=== PATIENT | male | born 1990 | race Hispanic/Latino ===

== ENCOUNTER 2017-07-29 05:58 | Emergency (ER) | payer OTHER ==
[2017-07-29 06:40] LABS: Bicarbonate 30 mEq/L (21-31); Glucose Level 84 mg/dL (65-120); Potassium 3.9 mEq/L (3.6-5.0); Sodium Level 141 mEq/L (135-145)
[2017-07-29 06:41] LABS: Absolute Lymphocytes (CBC) 1.7 K/uL (0.7-4.9); Absolute Monocytes 0.6 K/uL (0.1-1.3); Absolute Neutrophil 8.9 K/uL (1.8-8.0); BUN Blood Urea Nitrogen 10 mg/dL (6-20); Basophils % 0.9 % (0-1.3); Eosinophils % 0.2 % (0-4.4); Glomerular Filtration Rate > 60 mL/min (>60); Glomerular Filtration Rate > 90 mL/min (=/>90); Hematocrit 49.8 % (39.6-49.0); Lymphocytes % 14.7 % (15.3-44.8); MCH 31.4 pg (27.0-35.0); MCV 93.2 fL (80-100); MPV 8.5 fL (7.6-11.3); Monocytes % 5.3 % (3.3-12.3); RBC Red Blood Cell Count 5.34 M/uL (4.33-5.43)
[2017-07-29] MEDS ORDERED: NA CHLORIDE 0.9% 1,000 ML ONE (07:08)
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
[2017-07-29 08:14] LABS: Barbiturates NEGATIVE; Benzodiazepines POSITIVE; Cocaine POSITIVE; METHAMPHETAM NEGATIVE; Opiates NEGATIVE; Phencyclidine NEGATIVE; THC Cannibis NEGATIVE
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
[2017-07-29 10:31] LABS: Urine Blood 2+ (NEG); Urine Glucose NEGATIVE (NEG); Urine Protein NEGATIVE (NEG); Urine Specific Gravity 1.015 (1.005-1.030)
[2017-07-29] MEDS ORDERED: IBUPROFEN 400 MG TAB ONE (11:03)
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
[2017-07-29] MEDS ORDERED: TETANUS & DIPHTHERIA TOX,ADULT 0.5 ML VIAL ONE (12:03)
== END 2017-07-29 12:43 | disposition home or self-care (01) ==
LOC: ER 05:58
PROC: 2W3LX1Z Immobilization of Right Lower Extremity using Splint (ICD-10-PCS; principal; 2017-07-29)
DX: S82.141A Displaced bicondylar fracture of right tibia, initial encounter for closed fracture (principal); S00.81XA Abrasion of other part of head, initial encounter; F10.10 Alcohol abuse, uncomplicated; F14.10 Cocaine abuse, uncomplicated; F13.10 Sedative, hypnotic or anxiolytic abuse, uncomplicated; V29.49XA Motorcycle driver injured in collision with other motor vehicles in traffic accident, initial encounter; Z23 Encounter for immunization; F41.9 Anxiety disorder, unspecified; F32.9 Major depressive disorder, single episode, unspecified
CPT/HCPCS: 36415; 70450; 71260; 72125; 74177; 80048; 80307; 80320; 81003; 85025; 86850; 86900; 86901; 90714; 96360; 96361; 99285; J7030; Q9967